=== PATIENT | male | born 1950 | race Caucasian/White ===

== ENCOUNTER 2016-11-20 06:40 | Emergency (ER) | payer MEDICARE, BC ==
[~2016-11-20 06:40] MED LIST: ASAB PO; AUGMENTIN200 MG/5 M; COREG12 PO; COREG6 PO; DURAFLEX PO; GGACUDL; GLUCCHONDR PO; KAON-CL-1010 MEQ PO; L20 PO; LAN25 PO; LIPITOR20 PO; LIPITOR40 PO; MULTIVITAMI1 PO; MYLICON 80 MG T80 MG PO; PACERONE200 MG PO; PACERONE400 MG PO; VASOTEC2 PO; VITC500 PO; VITE PO; VITE1000 PO; XARELTO20 MG PO
== END 2016-11-20 07:35 | disposition home or self-care (01) ==
LOC: ER 06:40
DX: M70.21 Olecranon bursitis, right elbow (principal); I50.9 Heart failure, unspecified; I48.91 Unspecified atrial fibrillation; Z88.8 Allergy status to other drugs, medicaments and biological substances; Z79.82 Long term (current) use of aspirin; Z79.899 Other long term (current) drug therapy
CPT/HCPCS: 73080-RT; 99283